=== PATIENT | male | born 1985 | race African-American/Black ===

== ENCOUNTER 2021-04-08 07:12 | Day surgery (SDC) | payer OTHER, SELFPAY ==
[~2021-04-08] VITALS: Ht 188 cm; Wt 115.7 kg
[2021-04-08] MEDS ORDERED: LIDOCAINE 2% 100 MG/5 ML UJET TP ONE (08:26)
[2021-04-08] MEDS ORDERED: MIDAZOLAM 5 MG/5 ML VIAL ONE (08:26)
[2021-04-08] MEDS ORDERED: fentaNYL citrate 0.05 MG/ML VIAL ONE (08:26)
[2021-04-08] MEDS ORDERED: diphenhydrAMINE 50 MG/ML VIAL ONE (08:26)
[2021-04-08] MEDS ORDERED: fentaNYL citrate 0.05 MG/ML VIAL IVP ONE (13:50)
[2021-04-08] MEDS ORDERED: MIDAZOLAM 2 MG/2 ML VIAL IVP ONE (13:50)
== END 2021-04-08 09:27 | disposition home or self-care (01) ==
LOC: MMU 07:12 → MDS 07:12
PROVIDERS: ATTEND Internal Medicine Gastroenterology
DX: K52.9 Noninfective gastroenteritis and colitis, unspecified (principal); Z88.0 Allergy status to penicillin
CPT/HCPCS: 45380; 87426; J2250; J3010; J1200